=== PATIENT | male | born 1950 | race Caucasian/White ===

== ENCOUNTER 2020-02-02 16:51 | Inpatient (IN) | payer OTHER, SELFPAY ==
[~2020-02-02] VITALS: Ht 177.8 cm; Wt 110.0 kg
[2020-02-02] MEDS ORDERED: ondansetron/PF 4mg/2ml inj IV ONE (18:15)
[2020-02-02] MEDS ORDERED: morphine 4 MG/ML inj SYRINge IV ONE (18:15)
[2020-02-02 18:16] LABS: PARTIAL THROMBOPLASTIN TIME 46 SECONDS (22-32)
[2020-02-02 18:24] LABS: ALANINE AMINOTRANSFERASE 15 U/L (12-78); ALBUMIN 3.9 G/DL (3.4-5.0); ALBUMIN/GLOBULIN RATIO 0.9 (1.1-1.5); ALKALINE PHOSPHATASE 75 IU/L (46-116); ANION GAP 11 (8-16); ASPARTATE AMINO TRANSFERASE 19 U/L (10-37); BILIRUBIN,TOTAL 0.6 MG/DL (0.1-1.0); BLOOD UREA NITROGEN 20 MG/DL (7-18); CALCIUM 10.4 MG/DL (8.5-10.1); CHLORIDE 110 MMOL/L (99-107); CREATININE 1.05 MG/DL (0.60-1.10); GLUCOSE 103 MG/DL (70-104); POTASSIUM 4.9 MMOL/L (3.5-5.1); SODIUM 148 MMOL/L (135-145); TOTAL CARBON DIOXIDE 27.2 MMOL/L (24-32); TOTAL PROTEIN 8.3 G/DL (6.4-8.2); eGFR 70 ML/MIN
[2020-02-02 18:34] LABS: BASOPHILS % (AUTO) 0.5 % (0-1); EOSINOPHILS # (AUTO) 0.1 X10'3 (0-0.9); EOSINOPHILS % (AUTO) 1.7 % (0-6); HEMOGLOBIN 12.1 g/dl (14.0-17.9); LYMPHOCYTES # (AUTO) 1.1 X10'3 (1.1-4.8); LYMPHOCYTES % (AUTO) 14.9 % (21-51); MEAN CORPUSCULAR HEMOGLOBIN 30.4 PG (27.0-31.0); MEAN CORPUSCULAR HGB CONC 33.5 g/dL (33.0-36.5); MEAN CORPUSCULAR VOLUME 90.6 FL (78-98); MEAN PLATELET VOLUME 9.1 FL (7.4-10.4); MONOCYTES % (AUTO) 14.1 % (2-12); NEUTROPHILS % (AUTO) 68.8 % (42-75); PLATELET COUNT 189 X10'3 (140-440); RED BLOOD COUNT 3.97 X10'6 (4.70-6.10); RED CELL DISTRIBUTION WIDTH 14.4 % (11.5-14.5); WHITE BLOOD COUNT 7.3 X10'3 (4.5-11.0)
--- NOTE | 2020-02-02 18:36 | NUR ---
Pt. does not have severe pain or nausea at this time and would not like pain medication at this time.
[2020-02-02] MEDS ORDERED: iohexol 350MG/ML 100ml bottle IV ONE (18:40)
--- NOTE | 2020-02-02 19:31 | NUR ---
relieving RN for break, pt is being evaluated by Dr Iverson, unable to do med rec at this time, will attempt to call son for med list, Dr Iverson aware
[2020-02-02] MEDS ORDERED: magnesium 4gm in 100ml NS 100 ML IV PRN (20:00)
[2020-02-02] MEDS ORDERED: magnesium 2GM in 50ml NS 50 ML IV PRN (20:00)
[2020-02-02] MEDS ORDERED: ondansetron/PF 4mg/2ml inj IV PRN (20:00)
[2020-02-02] MEDS ORDERED: potassium Cl 20 mEq SR tablet PO PRN ×2 (20:00)
[2020-02-02] MEDS ORDERED: potassium CL 10mEq/100ml bag 100 ML IV PRN ×2 (20:00)
[2020-02-02] MEDS ORDERED: bisacodyl 10mg suppository rectal RC PRN (20:00)
[2020-02-02] MEDS ORDERED: magnesium Cl slow-release 64mg tablet PO PRN (20:00)
[2020-02-02] MEDS ORDERED: mag hydrox/Alum hydrox/simeth 30ml oral suspension PO PRN (20:00)
[2020-02-02] MEDS ORDERED: magnesium hydroxide 30ml (MOM) UD suspension PO PRN (20:00)
[2020-02-02] MEDS ORDERED: traMADol 50MG tablet PO PRN (20:55)
--- NOTE | 2020-02-02 21:15 | NUR ---
Patient in room [facility]. I have received report from Eduardo COREY and had the opportunity to ask questions and assume patient care.
[2020-02-02 21:27] VITALS: BP 182/68
[2020-02-02] MEDS: K and/or MAG REPLACEMENT MC SCH (21:58)
[2020-02-02] MEDS: normal saline 1000ml 1,000 ML IV SCH (21:58)
[2020-02-02] MEDS: docusate sod 100mg capsule PO SCH (21:59)
[2020-02-02 23:54] VITALS: BP 165/57
[2020-02-03 00:30] VITALS: BP 155/66
[2020-02-03] MEDS ORDERED: ERGO500056 PO (04:08)
[2020-02-03] MEDS ORDERED: MAGN64TA8 PO (04:08)
[2020-02-03] MEDS ORDERED: COU7.5T PO (04:12)
[2020-02-03] MEDS ORDERED: CLOP75TA33 PO (04:12)
[2020-02-03] MEDS ORDERED: ATOR40TA PO (04:12)
[2020-02-03] MEDS ORDERED: LOSA100T57 PO (04:12)
[2020-02-03] MEDS ORDERED: WARF10TA50 PO (04:12)
[2020-02-03] MEDS ORDERED: EZET10TA6 PO (04:12)
[2020-02-03] MEDS ORDERED: BISO5TAB PO ×2 (04:21→05:04)
[2020-02-03] MEDS ORDERED: [UNRECOGNIZED DRUG - OTHER] PO (04:21)
[2020-02-03] MEDS ORDERED: INDA2.5T5 PO (04:21)
[2020-02-03] MEDS ORDERED: ZOPICLONE PO (04:22)
[2020-02-03] MEDS ORDERED: MELA5TAB12 PO (04:22)
[2020-02-03] MEDS ORDERED: Melatonin PO (04:27)
[2020-02-03] MEDS ORDERED: [UNRECOGNIZED DRUG - OTHER] PO (04:37)
[2020-02-03 05:23] LABS: PARTIAL THROMBOPLASTIN TIME 46 SECONDS (22-32)
[2020-02-03 05:30] LABS: ALANINE AMINOTRANSFERASE 15 U/L (12-78); ALBUMIN 3.6 G/DL (3.4-5.0); ALKALINE PHOSPHATASE 68 IU/L (46-116); ANION GAP 8 (8-16); ASPARTATE AMINO TRANSFERASE 15 U/L (10-37); BILIRUBIN,TOTAL 0.8 MG/DL (0.1-1.0); BLOOD UREA NITROGEN 17 MG/DL (7-18); BUN/CREATININE RATIO 16.2 (5.4-32.0); CALCIUM 8.6 MG/DL (8.5-10.1); CHLORIDE 103 MMOL/L (99-107); CREATININE 1.05 MG/DL (0.60-1.10); GLUCOSE 111 MG/DL (70-104); MAGNESIUM 2.3 MG/DL (1.5-2.4); SODIUM 137 MMOL/L (135-145); TOTAL CARBON DIOXIDE 26.3 MMOL/L (24-32); TOTAL PROTEIN 7.2 G/DL (6.4-8.2); eGFR 70 ML/MIN
[2020-02-03 05:31] LABS: BASOPHILS # (AUTO) 0.1 X10'3 (0-0.2); BASOPHILS % (AUTO) 0.8 % (0-1); EOSINOPHILS # (AUTO) 0.1 X10'3 (0-0.9); EOSINOPHILS % (AUTO) 0.9 % (0-6); HEMATOCRIT 35.5 % (42.0-52.0); HEMOGLOBIN 11.7 g/dl (14.0-17.9); LYMPHOCYTES # (AUTO) 1.1 X10'3 (1.1-4.8); MEAN CORPUSCULAR HEMOGLOBIN 30.1 PG (27.0-31.0); MEAN CORPUSCULAR HGB CONC 33.1 g/dL (33.0-36.5); MEAN PLATELET VOLUME 9.3 FL (7.4-10.4); MONOCYTES % (AUTO) 14.7 % (2-12); NEUTROPHILS # (AUTO) 4.4 X10'3 (1.8-7.7); NEUTROPHILS % (AUTO) 66.6 % (42-75); PLATELET COUNT 192 X10'3 (140-440); RED CELL DISTRIBUTION WIDTH 14.2 % (11.5-14.5); WHITE BLOOD COUNT 6.6 X10'3 (4.5-11.0)
--- NOTE | 2020-02-03 06:26 | NUR ---
Problems reprioritized. Patient report given, questions answered & plan of care reviewed with MADHAV Ross.
[2020-02-03 08:00] VITALS: BP 145/51
[2020-02-03] MEDS: K and/or MAG REPLACEMENT MC SCH ×2 (08:00→19:45)
[2020-02-03] MEDS: docusate sod 100mg capsule PO SCH ×2 (08:00→19:47)
[2020-02-03] MEDS: losartan 50mg tablet PO SCH (09:00)
[2020-02-03] MEDS: atorvastatin 20mg tablet PO SCH (09:00)
[2020-02-03] MEDS: atenolol 25mg tablet PO SCH ×2 (09:00→19:47)
[2020-02-03] MEDS ORDERED: phytonadione inj. 10 MG in normal saline 100ml IV soln 99 ML IV ONE (10:00)
--- NOTE | 2020-02-03 11:45 | NUR ---
Patient found to have fever of 102.3, MD notified and per Dr. Kilgore, testing pt for COVID-19. Tylenol given, pain medication given for this patient. Educated pt on use of Incentive spirometer to bring temperature down. Blood cultures and urinalysis ordered as well.
[2020-02-03 12:00] VITALS: BP 155/51
[2020-02-03] MEDS: morphine 2 MG/ML inj. syringe IV PRN (12:35)
[2020-02-03] MEDS: acetaminophen 325mg tablet PO PRN (12:55)
--- NOTE | 2020-02-03 13:00 | NUR ---
Patient's temperature now at 100.0 F. Patient states feeling much better. will continue to monitor.
[2020-02-03 13:33] LABS: CLARITY,URINE CLEAR (Clear); COLOR,URINE YELLOW (Yellow); GLUCOSE, URINE NEGATIVE (Neg); KETONES,URINE NEGATIVE (Neg); LEUKOCYTE ESTERASE ,URINE NEGATIVE (Neg); NITRITES, URINE NEGATIVE (Neg); OCCULT BLOOD,URINE SMALL (Neg); PROTEIN,URINE NEGATIVE (Neg); UROBILINOGEN,URINE 0.2 E.U/dL (0.2-1.0)
[2020-02-03 13:34] LABS: UA COLLECTION TYPE NON-SPECIFIED
[2020-02-03 13:40] LABS: BACTERIA,URINE 1+ /HPF (Neg); MUCUS STRANDS FEW /LPF (Neg); SQUAMOUS EPITHELIAL CELL,UR FEW /LPF (FEW); WBC,URINE 0-4 /HPF (0-4)
[2020-02-03] MEDS: normal saline 1000ml 1,000 ML IV SCH ×2 (14:47→17:01)
--- NOTE | 2020-02-03 15:45 | NUR ---
Patient's temp came down to 99.3 F.
[2020-02-03] MEDS: azithromycin 250mg tablet PO SCH (16:59)
[2020-02-03] MEDS: CefTRIAXone/D5W-Rocephin 1gm 50 ML IV SCH (17:00)
--- NOTE | 2020-02-03 18:16 | NUR ---
Problems reprioritized. Patient report given, questions answered & plan of care reviewed with MADHAV Nunes.
[2020-02-03 19:50] VITALS: BP 160/55
[2020-02-03] MEDS ORDERED: heparin 25,000 UNIT/250ml bag 250 ML IV SCH (23:38)
[2020-02-03] MEDS ORDERED: heparin 10,000 units/1 ML INJ IV ONE (23:40)
[2020-02-03] MEDS ORDERED: heparin 10,000 units/1 ML INJ IV PRN (23:40)
[2020-02-04] VITALS (21 sets, daily range): BP systolic 94–169; BP diastolic 38–70
[2020-02-04 00:11] LABS: PARTIAL THROMBOPLASTIN TIME 34 SECONDS (22-32)
[2020-02-04 00:15] LABS: BASOPHILS % (AUTO) 0.8 % (0-1); EOSINOPHILS % (AUTO) 0.3 % (0-6); HEMATOCRIT 35.1 % (42.0-52.0); HEMOGLOBIN 11.8 g/dl (14.0-17.9); LYMPHOCYTES # (AUTO) 1.1 X10'3 (1.1-4.8); LYMPHOCYTES % (AUTO) 19.8 % (21-51); MEAN CORPUSCULAR HEMOGLOBIN 30.7 PG (27.0-31.0); MEAN CORPUSCULAR HGB CONC 33.7 g/dL (33.0-36.5); MEAN PLATELET VOLUME 8.9 FL (7.4-10.4); MONOCYTES # (AUTO) 0.8 X10'3 (0-0.9); MONOCYTES % (AUTO) 14.1 % (2-12); NEUTROPHILS # (AUTO) 3.5 X10'3 (1.8-7.7); PLATELET COUNT 175 X10'3 (140-440); RED BLOOD COUNT 3.86 X10'6 (4.70-6.10); RED CELL DISTRIBUTION WIDTH 14.3 % (11.5-14.5); WHITE BLOOD COUNT 5.4 X10'3 (4.5-11.0)
[2020-02-04] MEDS: morphine 2 MG/ML inj. syringe IV PRN ×2 (00:27→14:34)
[2020-02-04] MEDS: acetaminophen 325mg tablet PO PRN (01:09)
[2020-02-04] MEDS: normal saline 1000ml 1,000 ML IV SCH ×3 (01:32→22:00)
[2020-02-04] MEDS ORDERED: ceFAZolin 1000mg inj ONE ×3 (06:10→09:29)
[2020-02-04] MEDS ORDERED: heparin 10,000 units/1 ML INJ ONE (06:10)
--- NOTE | 2020-02-04 06:51 | NUR ---
Patient in room [facility]. I have received report from MADHAV Nunes and had the opportunity to ask questions and assume patient care.
[2020-02-04] MEDS: CefTRIAXone/D5W-Rocephin 1gm 50 ML IV SCH (07:30)
[2020-02-04] MEDS ORDERED: ringers solution, lacted 1,000 ML IV SCH (07:46)
[2020-02-04] MEDS ORDERED: proCHLORperazine 10 MG/2 ml inj IV PRN (07:50)
[2020-02-04] MEDS ORDERED: fentaNYL/PF 50MCG/1 ML 2ML syringe IV PRN ×2 (07:50)
[2020-02-04] MEDS ORDERED: hydrALAZINE 20mg/ml inj. IV PRN (07:50)
[2020-02-04] MEDS ORDERED: morphine 2 MG/ML inj. syringe IV PRN (07:50)
[2020-02-04] MEDS ORDERED: morphine 4 MG/ML inj SYRINge IV PRN (07:50)
[2020-02-04] MEDS ORDERED: labetalol 20mg/4ml (5mg/ml) syringe IV PRN (07:50)
[2020-02-04] MEDS ORDERED: ondansetron/PF 4mg/2ml inj IV PRN ×2 (07:50→12:10)
[2020-02-04] MEDS ORDERED: acetaminophen 1,000mg/100ml IV 100 ML IV PRN (07:50)
--- NOTE | 2020-02-04 07:51 | NUR ---
Patient taken to OR. pre-op check list completed. Heparin drip running. called spoke to Dr Parham waiting on PT/ INR .
[2020-02-04 07:53] LABS: ALANINE AMINOTRANSFERASE 18 U/L (12-78); ALBUMIN 3.1 G/DL (3.4-5.0); ALBUMIN/GLOBULIN RATIO 0.9 (1.1-1.5); ALKALINE PHOSPHATASE 60 IU/L (46-116); ANION GAP 9 (8-16); ASPARTATE AMINO TRANSFERASE 20 U/L (10-37); BILIRUBIN,TOTAL 0.8 MG/DL (0.1-1.0); BLOOD UREA NITROGEN 26 MG/DL (7-18); BUN/CREATININE RATIO 18.8 (5.4-32.0); CALCIUM 8.3 MG/DL (8.5-10.1); CHLORIDE 103 MMOL/L (99-107); CREATININE 1.38 MG/DL (0.60-1.10); GLUCOSE 105 MG/DL (70-104); MAGNESIUM 2.2 MG/DL (1.5-2.4); POTASSIUM 3.9 MMOL/L (3.5-5.1); SODIUM 138 MMOL/L (135-145); TOTAL CARBON DIOXIDE 26.3 MMOL/L (24-32); TOTAL PROTEIN 6.5 G/DL (6.4-8.2); eGFR 51 ML/MIN
[2020-02-04 08:00] LABS: BASOPHILS % (AUTO) 0.9 % (0-1); EOSINOPHILS % (AUTO) 0.7 % (0-6); HEMATOCRIT 32.7 % (42.0-52.0); LYMPHOCYTES # (AUTO) 1.2 X10'3 (1.1-4.8); LYMPHOCYTES % (AUTO) 21.5 % (21-51); MEAN CORPUSCULAR HEMOGLOBIN 30.5 PG (27.0-31.0); MEAN CORPUSCULAR HGB CONC 33.6 g/dL (33.0-36.5); MEAN CORPUSCULAR VOLUME 90.8 FL (78-98); MONOCYTES # (AUTO) 0.9 X10'3 (0-0.9); MONOCYTES % (AUTO) 16.7 % (2-12); NEUTROPHILS # (AUTO) 3.2 X10'3 (1.8-7.7); NEUTROPHILS % (AUTO) 60.2 % (42-75); PLATELET COUNT 163 X10'3 (140-440); RED CELL DISTRIBUTION WIDTH 14.3 % (11.5-14.5); WHITE BLOOD COUNT 5.4 X10'3 (4.5-11.0)
[2020-02-04] MEDS: losartan 50mg tablet PO SCH (08:00)
[2020-02-04] MEDS: azithromycin 250mg tablet PO SCH (08:00)
[2020-02-04] MEDS: atorvastatin 20mg tablet PO SCH (08:00)
[2020-02-04] MEDS: K and/or MAG REPLACEMENT MC SCH ×2 (08:00→20:17)
[2020-02-04] MEDS: atenolol 25mg tablet PO SCH ×2 (08:00→20:11)
[2020-02-04] MEDS: docusate sod 100mg capsule PO SCH ×2 (08:00→20:11)
[2020-02-04] MEDS ORDERED: fentaNYL /PF 50mcg/ml 5ml ampule ONE (08:13)
[2020-02-04] MEDS ORDERED: midazolam 2 mg/2 ml injection ONE (08:13)
[2020-02-04] MEDS ORDERED: sevoflurane 250ml liquid IH ONE (08:16)
[2020-02-04 09:19] LABS: PLATELET ESTIMATE NORMAL; TOTAL CELLS COUNTED 100
[2020-02-04] MEDS ORDERED: LIDOcaine 1% (10mg/ml) 2ml vial ONE (09:29)
[2020-02-04] MEDS ORDERED: 0.9 % SODIUM CHLORIDE 10 ML VIAL ONE (09:29)
[2020-02-04] MEDS ORDERED: phenylephrine 10mg/ml inj. ONE (09:29)
[2020-02-04] MEDS ORDERED: propofol inj 20 ML IV ONE ×2 (09:29→09:48)
[2020-02-04] MEDS ORDERED: ePHEDrine 50MG/ML INJ. ONE (09:29)
[2020-02-04] MEDS ORDERED: LIDOcaine 2% (20mg/ml) 5ml vial ONE (09:29)
[2020-02-04] MEDS ORDERED: rocuronium 10mg/ml inj IV ONE ×2 (09:29→09:32)
[2020-02-04] MEDS ORDERED: ondansetron/PF 4mg/2ml inj ONE (09:48)
[2020-02-04] MEDS ORDERED: dexamethasone sod phosphate 4mg/ml inj. ONE (09:48)
[2020-02-04] MEDS ORDERED: heparin 1,000unit/ml 10ml vial 10 ML ONE (09:48)
[2020-02-04] MEDS ORDERED: NORepinephrine 1 mg/ml inj IV ONE (10:22)
[2020-02-04] MEDS ORDERED: sugammadex 200mg/2ml injection IV ONE (11:00)
[2020-02-04] MEDS ORDERED: BUPIVACAINE liposomal/PF 13.3 MG/ML vial IM ONE (11:36)
[2020-02-04] MEDS ORDERED: ROPIVAcaine 0.5% (5mg/ml) 30ml vial ONE (11:36)
[2020-02-04] MEDS ORDERED: BUPIVAcaine/PF 2.5 mg/ml (0.25%) 30ml vial ONE (11:38)
[2020-02-04] MEDS ORDERED: glycopyrrolate 0.2mg/ml inj ONE (11:40)
[2020-02-04] MEDS ORDERED: neostigmine methylsulfate 1 MG/ML 10ml vial ONE (11:40)
[2020-02-04 12:10] LABS: PARTIAL THROMBOPLASTIN TIME 136 SECONDS (22-32)
--- NOTE | 2020-02-04 12:12 | NUR ---
Received from OR via , accompanied by Anesthesiologist DR HAMMOND and report given by Anesthesiolgist. AWAKENS TO VOICE. VITALS STABLE. DRESSINGS DI. JENNIFER PAIN. GAY WITH CLEAR URINE. DOPPLER QUALITY PULSES TO BILAT FEET,
--- NOTE | 2020-02-04 12:33 | NUR ---
Pt is gong to room 2012 post surgery. Report given ton ICU nurse.
--- NOTE | 2020-02-04 13:22 | NUR ---
Report called to receiving nurse. Transferred via BED Belongings . Special Issues communicated to receiving nurse. AWAKE AND ORIENTED. VITALS STABLE. DRESSINGS DI. JENNIFER PAIN. TO CICU RM 2013 AT THIS TIME.
[2020-02-04] MEDS: HYDROcodone/acetaminophen 10/325mg tab PO PRN ×2 (17:01→21:31)
--- NOTE | 2020-02-04 18:30 | NUR ---
Patient in room C[facility] 2013. I have received report from Pradeep COREY, and had the opportunity to ask questions and assume patient care.
[2020-02-04] MEDS: lactobacillus rhamnosus 10,000 MMU CELLS/CAPSULE PO SCH (20:10)
[2020-02-04] MEDS: enoxaparin 80mg/0.8ml syringe SUBCUT SCH (21:32)
[2020-02-04] MEDS: enoxaparin 30mg/0.3ml syringe SUBCUT SCH (21:32)
[2020-02-05] VITALS (19 sets, daily range): BP systolic 102–152; BP diastolic 31–55
[2020-02-05 02:44] LABS: BASOPHILS % (AUTO) 0.1 % (0-1); EOSINOPHILS % (AUTO) 0 % (0-6); HEMATOCRIT 28.6 % (42.0-52.0); HEMOGLOBIN 9.7 g/dl (14.0-17.9); LYMPHOCYTES # (AUTO) 0.6 X10'3 (1.1-4.8); LYMPHOCYTES % (AUTO) 7.5 % (21-51); MEAN CORPUSCULAR HEMOGLOBIN 30.5 PG (27.0-31.0); MEAN CORPUSCULAR VOLUME 89.8 FL (78-98); MEAN PLATELET VOLUME 8.7 FL (7.4-10.4); MONOCYTES # (AUTO) 0.8 X10'3 (0-0.9); MONOCYTES % (AUTO) 10.5 % (2-12); NEUTROPHILS # (AUTO) 6.1 X10'3 (1.8-7.7); NEUTROPHILS % (AUTO) 81.9 % (42-75); PLATELET COUNT 162 X10'3 (140-440); RED BLOOD COUNT 3.18 X10'6 (4.70-6.10); RED CELL DISTRIBUTION WIDTH 14.3 % (11.5-14.5); WHITE BLOOD COUNT 7.4 X10'3 (4.5-11.0)
[2020-02-05 03:00] LABS: ALANINE AMINOTRANSFERASE 14 U/L (12-78); ALBUMIN 2.5 G/DL (3.4-5.0); ALBUMIN/GLOBULIN RATIO 0.8 (1.1-1.5); ALKALINE PHOSPHATASE 48 IU/L (46-116); ANION GAP 6 (8-16); ASPARTATE AMINO TRANSFERASE 21 U/L (10-37); BILIRUBIN,TOTAL 0.5 MG/DL (0.1-1.0); BLOOD UREA NITROGEN 25 MG/DL (7-18); BUN/CREATININE RATIO 18.8 (5.4-32.0); CALCIUM 7.5 MG/DL (8.5-10.1); CHLORIDE 106 MMOL/L (99-107); CREATININE 1.33 MG/DL (0.60-1.10); GLUCOSE 182 MG/DL (70-104); MAGNESIUM 2.1 MG/DL (1.5-2.4); POTASSIUM 4.5 MMOL/L (3.5-5.1); SODIUM 136 MMOL/L (135-145); TOTAL CARBON DIOXIDE 24.3 MMOL/L (24-32); TOTAL PROTEIN 5.8 G/DL (6.4-8.2); eGFR 53 ML/MIN
--- NOTE | 2020-02-05 06:27 | NUR ---
Problems reprioritized. Patient report given, questions answered & plan of care reviewed with Orquidea COREY.
--- NOTE | 2020-02-05 06:32 | NUR ---
Patient in room CICU 2013. I have received report from MADHAV Romeo and had the opportunity to ask questions and assume patient care.
[2020-02-05] MEDS: atorvastatin 20mg tablet PO SCH (08:12)
[2020-02-05] MEDS: CefTRIAXone/D5W-Rocephin 1gm 50 ML IV SCH (08:12)
[2020-02-05] MEDS: docusate sod 100mg capsule PO SCH ×2 (08:12→21:32)
[2020-02-05] MEDS: atenolol 25mg tablet PO SCH ×2 (08:12→20:00)
[2020-02-05] MEDS: lactobacillus rhamnosus 10,000 MMU CELLS/CAPSULE PO SCH ×2 (08:12→21:32)
[2020-02-05] MEDS: losartan 50mg tablet PO SCH (08:13)
[2020-02-05] MEDS: azithromycin 250mg tablet PO SCH (08:13)
[2020-02-05] MEDS: normal saline 1000ml 1,000 ML IV SCH (08:14)
[2020-02-05] MEDS: enoxaparin 80mg/0.8ml syringe SUBCUT SCH ×2 (08:14→21:31)
[2020-02-05] MEDS: enoxaparin 30mg/0.3ml syringe SUBCUT SCH ×2 (08:14→21:31)
[2020-02-05] MEDS: K and/or MAG REPLACEMENT MC SCH ×2 (08:49→20:00)
[2020-02-05] MEDS: morphine 2 MG/ML inj. syringe IV PRN (10:50)
--- NOTE | 2020-02-05 16:42 | NUR ---
Patient in room CICU 2013. I have received report from MADHAV Heard and had the opportunity to ask questions and assume patient care.
[2020-02-05] MEDS: HYDROcodone/acetaminophen 10/325mg tab PO PRN (17:27)
--- NOTE | 2020-02-05 17:30 | NUR ---
received pt into 345b,oriented to surroundings,pt.c/o pain lower abd 03/11,medicated with 1 norco 10 po,assessment complete,agree with prior assessment by MADHAV Heard
--- NOTE | 2020-02-05 17:32 | NUR ---
Problems reprioritized. Patient report given, questions answered & plan of care reviewed with MADHAV Adrian.
[2020-02-05] MEDS ORDERED: warfarin 10mg tablet PO ONE (21:00)
[2020-02-06] VITALS: BP 121/43
[2020-02-06 04:56] LABS: BASOPHILS % (AUTO) 0.3 % (0-1); EOSINOPHILS # (AUTO) 0.1 X10'3 (0-0.9); EOSINOPHILS % (AUTO) 1.2 % (0-6); HEMATOCRIT 25.9 % (42.0-52.0); HEMOGLOBIN 8.8 g/dl (14.0-17.9); LYMPHOCYTES # (AUTO) 1.2 X10'3 (1.1-4.8); LYMPHOCYTES % (AUTO) 17.7 % (21-51); MEAN CORPUSCULAR HEMOGLOBIN 30.5 PG (27.0-31.0); MEAN CORPUSCULAR HGB CONC 33.8 g/dL (33.0-36.5); MEAN CORPUSCULAR VOLUME 90.2 FL (78-98); MEAN PLATELET VOLUME 9.1 FL (7.4-10.4); MONOCYTES # (AUTO) 0.9 X10'3 (0-0.9); MONOCYTES % (AUTO) 13.1 % (2-12); NEUTROPHILS # (AUTO) 4.4 X10'3 (1.8-7.7); NEUTROPHILS % (AUTO) 67.7 % (42-75); PLATELET COUNT 163 X10'3 (140-440); RED BLOOD COUNT 2.87 X10'6 (4.70-6.10); RED CELL DISTRIBUTION WIDTH 14.4 % (11.5-14.5); WHITE BLOOD COUNT 6.5 X10'3 (4.5-11.0)
[2020-02-06 05:03] LABS: ALANINE AMINOTRANSFERASE 20 U/L (12-78); ALBUMIN 2.5 G/DL (3.4-5.0); ALBUMIN/GLOBULIN RATIO 0.8 (1.1-1.5); ALKALINE PHOSPHATASE 49 IU/L (46-116); ANION GAP 4 (8-16); ASPARTATE AMINO TRANSFERASE 18 U/L (10-37); BILIRUBIN,TOTAL 0.3 MG/DL (0.1-1.0); BLOOD UREA NITROGEN 26 MG/DL (7-18); CALCIUM 7.7 MG/DL (8.5-10.1); CHLORIDE 108 MMOL/L (99-107); CREATININE 1.04 MG/DL (0.60-1.10); GLUCOSE 110 MG/DL (70-104); MAGNESIUM 2.2 MG/DL (1.5-2.4); POTASSIUM 4.1 MMOL/L (3.5-5.1); SODIUM 138 MMOL/L (135-145); TOTAL CARBON DIOXIDE 25.7 MMOL/L (24-32); TOTAL PROTEIN 5.7 G/DL (6.4-8.2); eGFR 71 ML/MIN
--- NOTE | 2020-02-06 06:17 | NUR ---
Patient in room [facility]. I have received report from Sarkis COREY and had the opportunity to ask questions and assume patient care.
--- NOTE | 2020-02-06 06:21 | NUR ---
Patient in room [facility]. I have received report from MADHAV Dockery and had the opportunity to ask questions and assume patient care.
[2020-02-06 07:00] VITALS: BP 154/58
[2020-02-06] MEDS: losartan 50mg tablet PO SCH (07:35)
[2020-02-06] MEDS: atenolol 25mg tablet PO SCH ×2 (07:35→21:34)
[2020-02-06] MEDS: azithromycin 250mg tablet PO SCH (07:35)
[2020-02-06] MEDS: atorvastatin 20mg tablet PO SCH (07:35)
[2020-02-06] MEDS: docusate sod 100mg capsule PO SCH ×2 (07:35→21:34)
[2020-02-06] MEDS: lactobacillus rhamnosus 10,000 MMU CELLS/CAPSULE PO SCH ×2 (07:35→21:33)
[2020-02-06] MEDS: enoxaparin 30mg/0.3ml syringe SUBCUT SCH ×2 (07:36→21:35)
[2020-02-06] MEDS: enoxaparin 80mg/0.8ml syringe SUBCUT SCH ×2 (07:37→21:34)
[2020-02-06] MEDS: K and/or MAG REPLACEMENT MC SCH ×2 (08:00→20:00)
[2020-02-06] MEDS: CefTRIAXone/D5W-Rocephin 1gm 50 ML IV SCH (10:05)
[2020-02-06 11:00] VITALS: BP 121/43
[2020-02-06] MEDS: magnesium hydroxide 30ml (MOM) UD suspension PO SCH ×2 (12:20→21:34)
--- NOTE | 2020-02-06 13:35 | NUR ---
Paged Physical Therapy to let them know patient is waiting for them to come see him today
--- NOTE | 2020-02-06 13:41 | NUR ---
Student documentation: I have reviewed and agree with all interventions, assessments performed and documented by Tejinder BELLO.
[2020-02-06] MEDS: HYDROcodone/acetaminophen 10/325mg tab PO PRN (14:15)
--- NOTE | 2020-02-06 17:46 | NUR ---
Problems reprioritized. Patient report given, questions answered & plan of care reviewed with MADHAV RESENDIZ.
[2020-02-06 18:00] VITALS: BP 134/46
--- NOTE | 2020-02-06 18:32 | NUR ---
Problems reprioritized. Patient report given, questions answered & plan of care reviewed with Sarkis COREY.
[2020-02-06] MEDS ORDERED: warfarin 7.5mg tablet PO SCH (21:00)
[2020-02-07] VITALS: BP 151/50
[2020-02-07 05:15] LABS: BASOPHILS % (AUTO) 0.5 % (0-1); EOSINOPHILS # (AUTO) 0.2 X10'3 (0-0.9); EOSINOPHILS % (AUTO) 2.7 % (0-6); HEMATOCRIT 26.2 % (42.0-52.0); HEMOGLOBIN 8.9 g/dl (14.0-17.9); LYMPHOCYTES # (AUTO) 1.4 X10'3 (1.1-4.8); LYMPHOCYTES % (AUTO) 21.5 % (21-51); MEAN CORPUSCULAR HEMOGLOBIN 31.1 PG (27.0-31.0); MEAN CORPUSCULAR HGB CONC 33.9 g/dL (33.0-36.5); MEAN CORPUSCULAR VOLUME 91.6 FL (78-98); MEAN PLATELET VOLUME 8.9 FL (7.4-10.4); MONOCYTES # (AUTO) 0.9 X10'3 (0-0.9); MONOCYTES % (AUTO) 13.6 % (2-12); NEUTROPHILS # (AUTO) 3.9 X10'3 (1.8-7.7); NEUTROPHILS % (AUTO) 61.7 % (42-75); PLATELET COUNT 193 X10'3 (140-440); RED BLOOD COUNT 2.86 X10'6 (4.70-6.10); RED CELL DISTRIBUTION WIDTH 14.8 % (11.5-14.5); WHITE BLOOD COUNT 6.3 X10'3 (4.5-11.0)
[2020-02-07 05:28] LABS: ALANINE AMINOTRANSFERASE 23 U/L (12-78); ALBUMIN 2.5 G/DL (3.4-5.0); ALBUMIN/GLOBULIN RATIO 0.7 (1.1-1.5); ALKALINE PHOSPHATASE 49 IU/L (46-116); ANION GAP 5 (8-16); ASPARTATE AMINO TRANSFERASE 22 U/L (10-37); BILIRUBIN,TOTAL 0.3 MG/DL (0.1-1.0); BLOOD UREA NITROGEN 21 MG/DL (7-18); BUN/CREATININE RATIO 21.6 (5.4-32.0); CALCIUM 8.1 MG/DL (8.5-10.1); CHLORIDE 106 MMOL/L (99-107); CREATININE 0.97 MG/DL (0.60-1.10); GLUCOSE 105 MG/DL (70-104); MAGNESIUM 2.5 MG/DL (1.5-2.4); POTASSIUM 4.3 MMOL/L (3.5-5.1); SODIUM 139 MMOL/L (135-145); TOTAL CARBON DIOXIDE 27.6 MMOL/L (24-32); TOTAL PROTEIN 5.9 G/DL (6.4-8.2); eGFR 77 ML/MIN
--- NOTE | 2020-02-07 06:19 | NUR ---
Patient in room [facility]. I have received report from Sarkis COREY and had the opportunity to ask questions and assume patient care.
[2020-02-07] MEDS: HYDROcodone/acetaminophen 10/325mg tab PO PRN (07:40)
[2020-02-07] MEDS: docusate sod 100mg capsule PO SCH ×2 (07:40→20:00)
[2020-02-07 07:46] VITALS: BP 146/56
[2020-02-07] MEDS: magnesium hydroxide 30ml (MOM) UD suspension PO SCH (08:00)
[2020-02-07] MEDS: K and/or MAG REPLACEMENT MC SCH ×2 (08:00→20:00)
[2020-02-07] MEDS: CefTRIAXone/D5W-Rocephin 1gm 50 ML IV SCH (08:02)
[2020-02-07] MEDS: losartan 50mg tablet PO SCH (08:03)
[2020-02-07] MEDS: atorvastatin 20mg tablet PO SCH (08:03)
[2020-02-07] MEDS: azithromycin 250mg tablet PO SCH (08:04)
[2020-02-07] MEDS: lactobacillus rhamnosus 10,000 MMU CELLS/CAPSULE PO SCH ×2 (08:04→20:19)
[2020-02-07] MEDS: enoxaparin 30mg/0.3ml syringe SUBCUT SCH ×2 (08:04→20:18)
[2020-02-07] MEDS: atenolol 25mg tablet PO SCH ×2 (08:04→20:19)
[2020-02-07] MEDS: enoxaparin 80mg/0.8ml syringe SUBCUT SCH ×2 (08:05→20:19)
--- NOTE | 2020-02-07 10:38 | NUR ---
Paged Dr. Rios regarding Mg of 2.5. MESSAGE: Surgical Flr Lebron RN ext [phone]. RE: Felipe Hutson. Patient Mg today is 2.5. Milk of Magnesia has magnesium. Are you ok holding it? I just gave him Dulcolax supp
--- NOTE | 2020-02-07 11:43 | NUR ---
Patient just had BM after Dulcolax suppository was given per rectum
--- NOTE | 2020-02-07 12:59 | NUR ---
Per Dr. Rios, she consulted Dr. Mai and Dr. Mai wanted patient to have therapeutic INR level before he can be discharge
--- NOTE | 2020-02-07 18:35 | NUR ---
Problems reprioritized. Patient report given, questions answered & plan of care reviewed with Risa COREY.
[2020-02-07 19:56] VITALS: BP 156/49
[2020-02-07] MEDS ORDERED: warfarin 10mg tablet PO ONE (21:00)
[2020-02-07 23:42] VITALS: BP 143/45
--- NOTE | 2020-02-08 02:48 | NUR ---
Patient in room [facility]. I have received report from MADHAV Diana and had the opportunity to ask questions and assume patient care. Addendum: 02/08/20 at 0248 by Risa Escobedo RN Amended: Links added.
[2020-02-08 05:14] LABS: ALBUMIN 2.4 G/DL (3.4-5.0); ANION GAP 8 (8-16); BLOOD UREA NITROGEN 18 MG/DL (7-18); BUN/CREATININE RATIO 17.3 (5.4-32.0); CALCIUM 8.4 MG/DL (8.5-10.1); CHLORIDE 105 MMOL/L (99-107); CREATININE 1.04 MG/DL (0.60-1.10); GLUCOSE 120 MG/DL (70-104); MAGNESIUM 2.5 MG/DL (1.5-2.4); POTASSIUM 4.1 MMOL/L (3.5-5.1); SODIUM 140 MMOL/L (135-145); TOTAL CARBON DIOXIDE 27.5 MMOL/L (24-32); eGFR 71 ML/MIN
--- NOTE | 2020-02-08 06:02 | NUR ---
Problems reprioritized. Patient report given, questions answered & plan of care reviewed with MADHAV Patel. Addendum: 02/08/20 at 0603 by Risa Escobedo RN Amended: Links added.
--- NOTE | 2020-02-08 06:34 | NUR ---
Patient in room [facility]. I have received report from MADHAV Kaiser and had the opportunity to ask questions and assume patient care.
[2020-02-08 07:00] VITALS: BP 148/50
[2020-02-08] MEDS: K and/or MAG REPLACEMENT MC SCH ×2 (07:05→20:00)
[2020-02-08] MEDS: enoxaparin 30mg/0.3ml syringe SUBCUT SCH ×2 (08:02→19:21)
[2020-02-08] MEDS: atorvastatin 20mg tablet PO SCH (08:02)
[2020-02-08] MEDS: docusate sod 100mg capsule PO SCH ×2 (08:02→19:27)
[2020-02-08] MEDS: lactobacillus rhamnosus 10,000 MMU CELLS/CAPSULE PO SCH ×2 (08:02→19:20)
[2020-02-08] MEDS: enoxaparin 80mg/0.8ml syringe SUBCUT SCH ×2 (08:02→19:20)
[2020-02-08] MEDS: azithromycin 250mg tablet PO SCH (08:02)
[2020-02-08] MEDS: CefTRIAXone/D5W-Rocephin 1gm 50 ML IV SCH (08:03)
[2020-02-08] MEDS: atenolol 25mg tablet PO SCH ×2 (08:06→19:20)
[2020-02-08] MEDS: losartan 50mg tablet PO SCH (08:06)
[2020-02-08 11:01] VITALS: BP 124/51
[2020-02-08] MEDS: HYDROcodone/acetaminophen 10/325mg tab PO PRN (11:30)
--- NOTE | 2020-02-08 18:05 | NUR ---
Patient in room [facility]. I have received report from MADHAV Patel and had the opportunity to ask questions and assume patient care.
--- NOTE | 2020-02-08 18:08 | NUR ---
Problems reprioritized. Patient report given, questions answered & plan of care reviewed with MADHAV Lazo.
[2020-02-08 19:59] VITALS: BP 173/55
[2020-02-08] MEDS ORDERED: warfarin 2.5mg tablet PO ONE (21:00)
[2020-02-08] MEDS ORDERED: warfarin 10mg tablet PO ONE (21:00)
[2020-02-09] VITALS: BP 149/46
[2020-02-09] MEDS ORDERED: diphenhydrAMINE 25mg capsule PO PRN (04:40)
[2020-02-09 05:46] LABS: ALBUMIN 2.4 G/DL (3.4-5.0); ANION GAP 6 (8-16); BLOOD UREA NITROGEN 18 MG/DL (7-18); BUN/CREATININE RATIO 16.4 (5.4-32.0); CALCIUM 8.5 MG/DL (8.5-10.1); CHLORIDE 105 MMOL/L (99-107); GLUCOSE 114 MG/DL (70-104); MAGNESIUM 2.3 MG/DL (1.5-2.4); POTASSIUM 4.5 MMOL/L (3.5-5.1); SODIUM 137 MMOL/L (135-145); TOTAL CARBON DIOXIDE 25.7 MMOL/L (24-32); eGFR 66 ML/MIN
--- NOTE | 2020-02-09 06:08 | NUR ---
Problems reprioritized. Patient report given, questions answered & plan of care reviewed with MADHAV Patel.
--- NOTE | 2020-02-09 06:29 | NUR ---
Patient in room [facility]. I have received report from MADHAV Lazo and had the opportunity to ask questions and assume patient care.
[2020-02-09] MEDS: K and/or MAG REPLACEMENT MC SCH ×2 (06:53→20:00)
[2020-02-09 07:00] VITALS: BP 139/52
[2020-02-09] MEDS: HYDROcodone/acetaminophen 10/325mg tab PO PRN (07:23)
[2020-02-09] MEDS: azithromycin 250mg tablet PO SCH (07:37)
[2020-02-09] MEDS: lactobacillus rhamnosus 10,000 MMU CELLS/CAPSULE PO SCH ×2 (07:37→19:29)
[2020-02-09] MEDS: atenolol 25mg tablet PO SCH ×2 (07:37→19:28)
[2020-02-09] MEDS: atorvastatin 20mg tablet PO SCH (07:37)
[2020-02-09] MEDS: enoxaparin 80mg/0.8ml syringe SUBCUT SCH ×2 (07:38→19:29)
[2020-02-09] MEDS: losartan 50mg tablet PO SCH (07:38)
[2020-02-09] MEDS: enoxaparin 30mg/0.3ml syringe SUBCUT SCH ×2 (07:39→19:29)
[2020-02-09] MEDS: CefTRIAXone/D5W-Rocephin 1gm 50 ML IV SCH (07:41)
[2020-02-09] MEDS: docusate sod 100mg capsule PO SCH ×2 (08:00→20:00)
--- NOTE | 2020-02-09 10:35 | NUR ---
Student Medication Administration: For this medication-pass time frame, all medication were reviewed, dispensed, administered and documented per hospital policy by Aubree nursing home manager.
--- NOTE | 2020-02-09 10:35 | NUR ---
Student documentation: I have reviewed and agree with all interventions, assessments performed and documented by Aubree, instructor of nursing.
--- NOTE | 2020-02-09 10:58 | NUR ---
Initial: Pt admit with right groin pseudoaneurysm, now s/p surgical repair POD # 4. Pt with a wound VAC in place to right groin. Pt currently on a regular diet documented with 100% PO intake. D/w dietary to send double protein TID for satiety and increased protein needs. LBM 02/07. Pt with routine bowel care available however documented to be refusing at times. Will continue to follow and monitor need for further nutrition intervention. Recommendations: 1) Continue regular diet 2) Double eggs q breakfast, double meat BIDLD 3) Routine bowel care 4) Scaled weights per rx Addendum: 02/09/20 at [address] Amended: Links added.
[2020-02-09 11:00] VITALS: BP 118/49
--- NOTE | 2020-02-09 18:04 | NUR ---
Patient in room [facility]. I have received report from MADHAV Patel and had the opportunity to ask questions and assume patient care.
--- NOTE | 2020-02-09 18:10 | NUR ---
Problems reprioritized. Patient report given, questions answered & plan of care reviewed with MADHAV Lazo.
[2020-02-09 20:01] VITALS: BP 156/60
--- NOTE | 2020-02-09 20:24 | NUR ---
Patient refusing colace and milk of mag I had brought to administer. States he had large loose BM this AM.
[2020-02-09] MEDS ORDERED: warfarin 7.5mg tablet PO ONE (21:00)
[2020-02-10] VITALS: BP 135/48
--- NOTE | 2020-02-10 06:13 | NUR ---
Problems reprioritized. Patient report given, questions answered & plan of care reviewed with MADHAV Patel.
--- NOTE | 2020-02-10 06:28 | NUR ---
Patient in room [facility]. I have received report from MADHAV Lazo and had the opportunity to ask questions and assume patient care.
[2020-02-10] MEDS: K and/or MAG REPLACEMENT MC SCH ×2 (07:58→20:00)
[2020-02-10] MEDS: docusate sod 100mg capsule PO SCH ×2 (08:00→20:00)
[2020-02-10] MEDS: atenolol 25mg tablet PO SCH ×2 (08:05→19:31)
[2020-02-10] MEDS: HYDROcodone/acetaminophen 10/325mg tab PO PRN (08:05)
[2020-02-10] MEDS: losartan 50mg tablet PO SCH (08:06)
[2020-02-10] MEDS: lactobacillus rhamnosus 10,000 MMU CELLS/CAPSULE PO SCH ×2 (08:06→19:31)
[2020-02-10] MEDS: azithromycin 250mg tablet PO SCH (08:06)
[2020-02-10] MEDS: atorvastatin 20mg tablet PO SCH (08:07)
[2020-02-10] MEDS: enoxaparin 80mg/0.8ml syringe SUBCUT SCH ×2 (08:09→19:31)
[2020-02-10] MEDS: enoxaparin 30mg/0.3ml syringe SUBCUT SCH ×2 (08:10→19:32)
[2020-02-10] MEDS: CefTRIAXone/D5W-Rocephin 1gm 50 ML IV SCH (08:15)
[2020-02-10] MEDS: clopidogrel 75mg tablet PO SCH (09:52)
--- NOTE | 2020-02-10 11:00 | NUR ---
Patient Prevena was not holding suction anymore. Dr. Parham called and asked if he would rather the prevena be replaced or removed. Dr. Parham gave the order to replace the prevena. This was replaced bedside. Old prevena removed and kuldeep of incision were intact, skin was in good condition, small marble sized firm area to the lateral side of right groin, serous drainage was steadily draining from distal part of incision. New prevena placed and with good seal. Patient tolerated well.
[2020-02-10 12:27] VITALS: BP 121/45
--- NOTE | 2020-02-10 14:29 | NUR ---
Called Dr. Parham regarding patient Prevena that was placed at 1100 because the canister is filled up again and is no longer holding suction any longer. Dr. Parham gave an order to attach the prevena to a [facility] wound vac to collect the drainage. Dr. Parham also stated to run an CBC so that we can see where the patient's H/H is at. Will follow through with orders and continue to monitor patient.
[2020-02-10 15:06] LABS: BASOPHILS # (AUTO) 0.1 X10'3 (0-0.2); BASOPHILS % (AUTO) 0.8 % (0-1); EOSINOPHILS # (AUTO) 0.3 X10'3 (0-0.9); HEMATOCRIT 28.6 % (42.0-52.0); HEMOGLOBIN 9.6 g/dl (14.0-17.9); LYMPHOCYTES # (AUTO) 1.2 X10'3 (1.1-4.8); LYMPHOCYTES % (AUTO) 15.1 % (21-51); MEAN CORPUSCULAR HEMOGLOBIN 30.5 PG (27.0-31.0); MEAN CORPUSCULAR HGB CONC 33.6 g/dL (33.0-36.5); MEAN CORPUSCULAR VOLUME 90.9 FL (78-98); MEAN PLATELET VOLUME 8.3 FL (7.4-10.4); MONOCYTES # (AUTO) 0.9 X10'3 (0-0.9); MONOCYTES % (AUTO) 11.1 % (2-12); NEUTROPHILS # (AUTO) 5.5 X10'3 (1.8-7.7); PLATELET COUNT 309 X10'3 (140-440); RED BLOOD COUNT 3.15 X10'6 (4.70-6.10); RED CELL DISTRIBUTION WIDTH 14.6 % (11.5-14.5)
--- NOTE | 2020-02-10 18:10 | NUR ---
Problems reprioritized. Patient report given, questions answered & plan of care reviewed with MADHAV Lazo.
[2020-02-10 20:00] VITALS: BP 148/55
--- NOTE | 2020-02-10 20:27 | NUR ---
Dr. Parham okayed pulse checks q shift. Intervention frequency updated.
[2020-02-10] MEDS ORDERED: warfarin 7.5mg tablet PO ONE (21:00)
[2020-02-11 04:58] LABS: HEMOGLOBIN 9.1 g/dl (14.0-17.9); MEAN CORPUSCULAR HEMOGLOBIN 30.6 PG (27.0-31.0); MEAN CORPUSCULAR HGB CONC 33.6 g/dL (33.0-36.5); MEAN PLATELET VOLUME 8.3 FL (7.4-10.4); PLATELET COUNT 269 X10'3 (140-440); RED BLOOD COUNT 2.97 X10'6 (4.70-6.10); RED CELL DISTRIBUTION WIDTH 14.7 % (11.5-14.5); WHITE BLOOD COUNT 7.1 X10'3 (4.5-11.0)
--- NOTE | 2020-02-11 06:29 | NUR ---
Problems reprioritized. Patient report given, questions answered & plan of care reviewed with MADHAV Ross.
[2020-02-11] MEDS: atenolol 25mg tablet PO SCH ×2 (07:48→20:02)
[2020-02-11] MEDS: clopidogrel 75mg tablet PO SCH (07:48)
[2020-02-11] MEDS: losartan 50mg tablet PO SCH (07:48)
[2020-02-11] MEDS: lactobacillus rhamnosus 10,000 MMU CELLS/CAPSULE PO SCH ×2 (07:48→20:03)
[2020-02-11] MEDS: enoxaparin 80mg/0.8ml syringe SUBCUT SCH ×2 (07:49→20:04)
[2020-02-11] MEDS: enoxaparin 30mg/0.3ml syringe SUBCUT SCH ×2 (07:49→20:03)
[2020-02-11] MEDS: docusate sod 100mg capsule PO SCH ×2 (07:49→20:00)
[2020-02-11] MEDS: atorvastatin 20mg tablet PO SCH (07:49)
[2020-02-11 08:00] VITALS: BP 150/50
[2020-02-11] MEDS: K and/or MAG REPLACEMENT MC SCH ×2 (08:00→19:56)
[2020-02-11 12:00] VITALS: BP 138/50
[2020-02-11 18:00] VITALS: BP 122/56
--- NOTE | 2020-02-11 18:19 | NUR ---
Problems reprioritized. Patient report given, questions answered & plan of care reviewed with MADHAV Aldridge.
--- NOTE | 2020-02-11 19:01 | NUR ---
Patient in room [facility]. I have received report from Vandana COREY and had the opportunity to ask questions and assume patient care.
[2020-02-11] MEDS ORDERED: warfarin 7.5mg tablet PO ONE (21:00)
[2020-02-12] VITALS: BP 140/50
--- NOTE | 2020-02-12 06:23 | NUR ---
Problems reprioritized. Patient report given, questions answered & plan of care reviewed with MEGHA RN.
[2020-02-12 06:29] LABS: HEMATOCRIT 27.5 % (42.0-52.0); HEMOGLOBIN 9.2 g/dl (14.0-17.9); MEAN CORPUSCULAR HEMOGLOBIN 30.7 PG (27.0-31.0); MEAN CORPUSCULAR HGB CONC 33.6 g/dL (33.0-36.5); MEAN CORPUSCULAR VOLUME 91.4 FL (78-98); MEAN PLATELET VOLUME 8.3 FL (7.4-10.4); PLATELET COUNT 295 X10'3 (140-440); RED CELL DISTRIBUTION WIDTH 14.7 % (11.5-14.5); WHITE BLOOD COUNT 5.7 X10'3 (4.5-11.0)
[2020-02-12 07:00] VITALS: BP 143/49
[2020-02-12] MEDS: atenolol 25mg tablet PO SCH ×2 (08:00→19:47)
[2020-02-12] MEDS: K and/or MAG REPLACEMENT MC SCH ×2 (08:00→19:42)
[2020-02-12] MEDS: losartan 50mg tablet PO SCH (08:00)
[2020-02-12] MEDS: docusate sod 100mg capsule PO SCH ×2 (08:00→20:00)
[2020-02-12] MEDS: clopidogrel 75mg tablet PO SCH (08:00)
[2020-02-12] MEDS: lactobacillus rhamnosus 10,000 MMU CELLS/CAPSULE PO SCH ×2 (08:01→19:47)
[2020-02-12] MEDS: atorvastatin 20mg tablet PO SCH (08:01)
[2020-02-12] MEDS: enoxaparin 80mg/0.8ml syringe SUBCUT SCH ×2 (08:02→19:48)
[2020-02-12] MEDS: enoxaparin 30mg/0.3ml syringe SUBCUT SCH ×2 (08:02→19:49)
[2020-02-12 12:00] VITALS: BP 129/45
[2020-02-12 18:00] VITALS: BP 140/50
--- NOTE | 2020-02-12 18:19 | NUR ---
Problems reprioritized. Patient report given, questions answered & plan of care reviewed with MADHAV Aldridge.
--- NOTE | 2020-02-12 18:20 | NUR ---
Patient in room [facility]. I have received report from Vandana COREY and had the opportunity to ask questions and assume patient care.
[2020-02-12] MEDS ORDERED: warfarin 7.5mg tablet PO ONE (21:00)
[2020-02-13] VITALS: BP 138/54
[2020-02-13 05:13] LABS: HEMATOCRIT 28.4 % (42.0-52.0); HEMOGLOBIN 9.6 g/dl (14.0-17.9); MEAN CORPUSCULAR HEMOGLOBIN 30.9 PG (27.0-31.0); MEAN CORPUSCULAR HGB CONC 33.9 g/dL (33.0-36.5); MEAN PLATELET VOLUME 8.2 FL (7.4-10.4); PLATELET COUNT 304 X10'3 (140-440); RED BLOOD COUNT 3.12 X10'6 (4.70-6.10); RED CELL DISTRIBUTION WIDTH 14.8 % (11.5-14.5)
--- NOTE | 2020-02-13 06:30 | NUR ---
Problems reprioritized. Patient report given, questions answered & plan of care reviewed with ERASMO COREY. Patient still sleeping.
--- NOTE | 2020-02-13 06:35 | NUR ---
Patient in room [facility]. I have received report from Oly COREY and had the opportunity to ask questions and assume patient care.
--- NOTE | 2020-02-13 06:47 | NUR ---
Patient in room [facility]. I have received report from MADHAV Aldridge and had the opportunity to ask questions and assume patient care.
[2020-02-13 07:29] VITALS: BP 147/46
[2020-02-13] MEDS: atorvastatin 20mg tablet PO SCH (07:46)
[2020-02-13] MEDS: lactobacillus rhamnosus 10,000 MMU CELLS/CAPSULE PO SCH (07:46)
[2020-02-13] MEDS: clopidogrel 75mg tablet PO SCH (07:46)
[2020-02-13] MEDS: losartan 50mg tablet PO SCH (07:46)
[2020-02-13] MEDS: atenolol 25mg tablet PO SCH (07:47)
[2020-02-13] MEDS: enoxaparin 80mg/0.8ml syringe SUBCUT SCH (07:51)
[2020-02-13] MEDS: enoxaparin 30mg/0.3ml syringe SUBCUT SCH (07:52)
[2020-02-13] MEDS: K and/or MAG REPLACEMENT MC SCH (08:00)
[2020-02-13] MEDS: docusate sod 100mg capsule PO SCH (08:00)
[2020-02-13 11:35] VITALS: BP 123/38
--- NOTE | 2020-02-13 16:33 | NUR ---
Problems reprioritized. Patient report given, questions answered & plan of care reviewed with Britt COREY.
--- NOTE | 2020-02-13 17:17 | NUR ---
Pt discharged home per dr Rios in stable conditions. Prevena removed prior discharge per Dr Myers orders. Discharge and medication instructions given to pt. IV removed x2 with cannula intact. Pt was escorted to main lobby on w/c, left the hospital via private vehicle accompanied of family member.
[2020-02-13] MEDS ORDERED: warfarin 7.5mg tablet PO ONE (21:00)
== END 2020-02-13 16:36 | disposition home or self-care (01) | DRG 253 ==
LOC: ER 16:52 → ED HOLD 20:00 → SUR 3N 21:05 → PACU 02-04 12:10 → CICU 2S 02-04 12:36 → SUR 3N 02-05 17:05
PROVIDERS: ADMIT Family Medicine; ATTEND Family Medicine
PROC: 04UK0JZ Supplement Right Femoral Artery with Synthetic Substitute, Open Approach (ICD-10-PCS; 2020-02-04)
PROC: 04CK0ZZ Extirpation of Matter from Right Femoral Artery, Open Approach (ICD-10-PCS; 2020-02-04)
PROC: 04BK0ZZ Excision of Right Femoral Artery, Open Approach (ICD-10-PCS; principal; 2020-02-04 08:16)
DX: I72.4 Aneurysm of artery of lower extremity (principal); N39.0 Urinary tract infection, site not specified; E78.5 Hyperlipidemia, unspecified; I10 Essential (primary) hypertension; I25.10 Atherosclerotic heart disease of native coronary artery without angina pectoris; I35.9 Nonrheumatic aortic valve disorder, unspecified; I73.9 Peripheral vascular disease, unspecified; Z79.01 Long term (current) use of anticoagulants; Z95.2 Presence of prosthetic heart valve; Z95.5 Presence of coronary angioplasty implant and graft; Z96.653 Presence of artificial knee joint, bilateral; Z20.828 Contact with and (suspected) exposure to other viral communicable diseases; D64.9 Anemia, unspecified
CPT/HCPCS: 36415; 71045; 73706; 80048; 80053; 81001; 82948; 83605; 83735; 84145; 85025; 85027; 85610; 85730; 86885; 86900; 86901; 86920; 87040; 87081; 87635; 93005; 93926; 97110; 97116; 97161; 97530; 97535; 99285; A4618; A6455; A7000; C1758; C1768; C9290; C9399; G0378; J0690; J0696; J1100; J1644; J1650; J2001; J2250; J2270; J2370; J2405; J2704; J2710; J2795; J3010; J3430; J3490; J7030; J7040; J7120; Q0163; Q9967

== ENCOUNTER 2020-03-25 12:30 | Day surgery (SDC) | payer MEDICAID ==
[~2020-03-25 12:30] MED LIST: AMOX-580 PO; ATOR40TA PO; BISO5TAB PO; CLOP75TA33 PO; COU7.5T PO; ENOX100S3 SQ; HYDR-4353 PO; INDA2.5T5 PO; LOSA100T57 PO; PANT40TA4 PO; WARF10TA50 PO
== END 2020-03-25 14:52 | disposition home or self-care (01) ==
LOC: WOUND CARE 12:30
PROVIDERS: ATTEND Nurse Practitioner
DX: T81.89XD Other complications of procedures, not elsewhere classified, subsequent encounter (principal); L98.492 Non-pressure chronic ulcer of skin of other sites with fat layer exposed; I25.10 Atherosclerotic heart disease of native coronary artery without angina pectoris; I12.9 Hypertensive chronic kidney disease with stage 1 through stage 4 chronic kidney disease, or unspecified chronic kidney disease; N18.3 Chronic kidney disease, stage 3 (moderate); E78.5 Hyperlipidemia, unspecified; I73.9 Peripheral vascular disease, unspecified; E66.9 Obesity, unspecified; J45.909 Unspecified asthma, uncomplicated; Z79.899 Other long term (current) drug therapy; Z96.653 Presence of artificial knee joint, bilateral; Z95.1 Presence of aortocoronary bypass graft; Z68.34 Body mass index [BMI] 34.0-34.9, adult; Z79.01 Long term (current) use of anticoagulants; Z95.5 Presence of coronary angioplasty implant and graft; Y83.8 Other surgical procedures as the cause of abnormal reaction of the patient, or of later complication, without mention of misadventure at the time of the procedure
CPT/HCPCS: 97597; 97598

== ENCOUNTER 2020-03-31 08:50 | Outpatient (CLI) | payer MEDICAID | END 2020-03-31 10:19 | disposition home or self-care (01) | LOC: WOUND CARE 08:50 | PROVIDERS: ATTEND Nurse Practitioner | DX: T81.89XD Other complications of procedures, not elsewhere classified, subsequent encounter (principal); L98.495 Non-pressure chronic ulcer of skin of other sites with muscle involvement without evidence of necrosis; I25.10 Atherosclerotic heart disease of native coronary artery without angina pectoris; I12.9 Hypertensive chronic kidney disease with stage 1 through stage 4 chronic kidney disease, or unspecified chronic kidney disease; N18.3 Chronic kidney disease, stage 3 (moderate); E78.5 Hyperlipidemia, unspecified; I73.9 Peripheral vascular disease, unspecified; E66.9 Obesity, unspecified; J45.909 Unspecified asthma, uncomplicated; Z79.899 Other long term (current) drug therapy; Z96.653 Presence of artificial knee joint, bilateral; Z95.1 Presence of aortocoronary bypass graft; Z68.37 Body mass index [BMI] 37.0-37.9, adult; Z79.01 Long term (current) use of anticoagulants; Z95.5 Presence of coronary angioplasty implant and graft; Y83.8 Other surgical procedures as the cause of abnormal reaction of the patient, or of later complication, without mention of misadventure at the time of the procedure | CPT/HCPCS: G0463 ==

== ENCOUNTER 2020-04-09 11:12 | Emergency (ER) | payer MEDICAID ==
[~2020-04-09] VITALS: Ht 177.8 cm; Wt 109.1 kg
[~2020-04-09 11:12] MED LIST changes: -AMOX-580 PO; +CIPR-230 PO; -ENOX100S3 SQ; -HYDR-4353 PO; +TRAM50TA2 PO
[2020-04-09 12:45] VITALS: BP 168/63
== END 2020-04-09 12:46 | disposition home or self-care (01) ==
LOC: ER 11:12
DX: R79.1 Abnormal coagulation profile (principal); Z98.890 Other specified postprocedural states; I10 Essential (primary) hypertension; Z95.1 Presence of aortocoronary bypass graft; Z88.6 Allergy status to analgesic agent; Z88.5 Allergy status to narcotic agent; Z79.2 Long term (current) use of antibiotics; Z79.01 Long term (current) use of anticoagulants; Z79.899 Other long term (current) drug therapy; I48.91 Unspecified atrial fibrillation; K21.9 Gastro-esophageal reflux disease without esophagitis
CPT/HCPCS: 36415; 85610; 99283